=== PATIENT | male | born 1975 | race Caucasian/White ===

== ENCOUNTER 2017-02-04 15:43 | Outpatient (CLI) ==
[2017-02-05 15:57] LABS: RH FACTOR Positive (.)
== END 2017-02-04 15:44 | disposition home or self-care (01) ==
LOC: LAB 15:43
PROVIDERS: ATTEND Family Medicine
DX: Z00.00 Encounter for general adult medical examination without abnormal findings (principal)
CPT/HCPCS: 36415; 86900; 86901

== ENCOUNTER → 2018-03-03 | Outpatient (REF) | LOC: NONPT 15:37 | DX: Z02.89 Encounter for other administrative examinations (principal) | CPT/HCPCS: 36415; 80053; 80061; 82947; 83036; 83540; 84100; 84550; 85008; 85025; 86140; G0103 ==